=== PATIENT | female | born 1985 | race Caucasian/White ===

== ENCOUNTER 2019-12-07 10:33 | Emergency (ER) | payer SELFPAY ==
[~2019-12-07] VITALS: Ht 157.5 cm; Wt 52.7 kg
[2019-12-07 10:48] VITALS: BP 140/85
== END 2019-12-07 12:39 | disposition home or self-care (01) ==
LOC: ER 11:29
DX: J02.9 Acute pharyngitis, unspecified (principal); Z20.828 Contact with and (suspected) exposure to other viral communicable diseases; I49.9 Cardiac arrhythmia, unspecified
CPT/HCPCS: 87430; 87635; 93005; 99283; C9803; 99284